=== PATIENT | male | born 1965 | race Caucasian/White ===

== ENCOUNTER → 2017-01-04 | Outpatient (CLI) | payer BC ==
[2017-01-04 08:36] LABS: Basophils % (A) 0 %; CH 31.3; CHCM 33.9; Eosinophils # (A) 0.2 k/uL (0-0.7); Eosinophils % (A) 2 %; HCT 46.7 % (39.0-53.0); HDW 2.46; HGB 15.7 gm/dL (13.0-17.5); Luc # (Auto) 0.28; Luc % (Auto) 3; Lymphocytes # (A) 2.7 k/uL (1.0-4.8); Lymphocytes % (A) 32 %; MCH 31.2 pg (25.0-35.0); MCHC 33.7 g/dL (31.0-37.0); MCV 92.7 fL (80.0-100.0); Mean Platelet Volume 6.3; Monocytes # (A) 0.6 k/uL (0-1.0); Monocytes % (A) 7 %; Neutrophils # (A) 4.7 k/uL (1.3-7.7); Neutrophils % (A) 56 %; RBC 5.04 m/uL (4.30-5.90); RDW 12.5 % (11.5-15.5); WBC 8.6 k/uL (3.8-10.6); WBC (Perox) 8.12
[2017-01-04 09:07] LABS: ALT 38 U/L (21-72); AST 39 U/L (17-59); Alkaline Phosphatase 78 U/L (38-126); Anion Gap 12 mmol/L; Blood Urea Nitrogen 14 mg/dL (9-20); Calcium 9.6 mg/dL (8.4-10.2); Carbon Dioxide 26 mmol/L (22-30); Chloride 105 mmol/L (98-107); Cholesterol 131 mg/dL (<200); Glucose 91 mg/dL (74-99); HDL Cholesterol 38 mg/dL (40-60); Non-African American GFR(MDRD) >60 (>60 ml/min/1.73 sqM); Potassium 4.5 mmol/L (3.5-5.1); Sodium 143 mmol/L (137-145); Total Bilirubin 1.8 mg/dL (0.2-1.3); Total Protein 7.5 g/dL (6.3-8.2); Triglycerides 136 mg/dL (<150)
[2017-01-04 14:34] LABS: Hemoglobin A1C 8.7 % (4.2-6.1)
[2017-01-04 15:07] LABS: Urine Creatinine 227.4 mg/dL
== END | disposition home or self-care (01) ==
LOC: LABWHC1 07:15
PROVIDERS: ATTEND Family Medicine
DX: E11.65 Type 2 diabetes mellitus with hyperglycemia (principal)
CPT/HCPCS: 36415; 80053; 80061; 82043; 82570; 83036; 84443; 85025

== ENCOUNTER 2018-06-02 08:07 | Day surgery (SDC) | payer BC ==
[2018-05-31 10:48] VITALS: BMI 38.2
[~2018-06-02 08:07] MED LIST: LACTATED RINGERS 1,000 ML IV SCH
[2018-06-02] MEDS ORDERED: LIDOCAINE 1% 20 ML VIAL (10MG/ML) FOR IV START INTRADERMA ONE (08:20)
[2018-06-02 08:38] LABS: Glucose,Whole Blood 94 mg/dL (75-99)
[2018-06-02] MEDS ORDERED: LIDOCAINE 1% INJ 10MG/ML (20 ML MDV) ONE (09:25)
[2018-06-02] MEDS ORDERED: fentaNYL (PF) 50 MCG/ML 2 ML AMP ONE (09:25)
[2018-06-02] MEDS ORDERED: PROPOFOL 10 MG/ML 20 ML VIAL IV ONE (09:25)
[2018-06-02 10:00] VITALS: RESP 18
--- NOTE | 2018-06-02 10:01 | P.PCN ---
Date of Procedure: 06/02/18 Procedure(s) Performed: Procedure: Total colonoscopy. Preoperative diagnosis: Screening for neoplasia. Postoperative diagnosis: Exam within normal limits. Preparation: HalfLytely prep. Sedation: Was provided by anesthesia. Brief clinical history: The patient is a 52-year-old male who is scheduled for this evaluation for screening for neoplasia. He has no abdominal complaints or significant changes in his stools or any bleeding or anemia. No family history of colon cancer. Procedure: With the patient on his left lateral decubitus position and after informed consent and adequate sedation I am a the perianal area was inspected and it did not show any fissures or fistulas. There were no masses felt on digital rectal examination. The Olympus CFH 190L video colonoscope was then inserted in the rectum in the usual fashion and advanced to the cecum. The mucosa appeared healthy. No polyps or tumors were seen or any obvious diverticular disease or other pathology. I retroflexed the endoscope in the rectum before the endoscope was withdrawn. The patient tolerated the procedure well. Plan: The patient was reassured. He will follow-up with you as planned and I recommended repeat exam in 10 years.
[2018-06-02 10:17] VITALS: BP 146/81; PULSE 54
== END 2018-06-02 10:34 | disposition home or self-care (01) ==
LOC: ORWHC2ENDO 08:07
DX: Z12.11 Encounter for screening for malignant neoplasm of colon (principal); E11.9 Type 2 diabetes mellitus without complications; J45.909 Unspecified asthma, uncomplicated; K21.9 Gastro-esophageal reflux disease without esophagitis; I10 Essential (primary) hypertension; E78.5 Hyperlipidemia, unspecified; Z79.82 Long term (current) use of aspirin; Z79.899 Other long term (current) drug therapy; Z79.84 Long term (current) use of oral hypoglycemic drugs
CPT/HCPCS: 45378; J2001; J3010; J2704

== ENCOUNTER 2020-11-22 03:18 | Emergency (ER) | payer BC ==
[2020-11-22 03:23] VITALS: RESP 18; TEMP 97.9
--- NOTE | 2020-11-22 03:42 | ED ---
Chest Pain HPI - General Chief Complaint: Chest Pain Stated Complaint: Chest Pain Time Seen by Provider: 11/22/20 03:24 Source: patient Mode of arrival: wheelchair Limitations: no limitations - History of Present Illness Initial Comments: This patient is a 55-year-old man who presents to be evaluated for intermittent sharp stabbing chest pains. He states that they came on less than hour before he arrived here, while he was watching television. The patient states that it just lasts for a second at a time. He had 3 episodes at home and then said he is to be seen here. He had another 4 episodes subsequent to leaving home. He indicates the area just to the right of the sternum near the base. No associated symptoms. No discomfort during the history of physical exam. Patient declines analgesic MD Complaint: chest pain -: minutes(s) Onset: during rest Pain Location: right chest Pain Radiation: none Severity: moderate Quality: sharp Consistency: intermittent Improves With: nothing Worsens With: nothing Treatments Prior to Arrival: none - Related Data Home Medications Medication Instructions Recorded Confirmed Aspirin [Adult Low Dose Aspirin EC] 81 mg PO DAILY 12/01/16 06/02/18 Atorvastatin [Lipitor] 10 mg PO DAILY@1400 12/01/16 06/02/18 Multivitamins, Thera [Multivitamin 1 tab PO DAILY 05/31/18 06/02/18 (formulary)] Nabumetone [Relafen] 500 mg PO DIRECTED PRN 05/31/18 06/02/18 lisinopriL [Zestril] 10 mg PO DAILY@1400 05/31/18 06/02/18 metFORMIN HCL [Glucophage] 1,000 mg PO 1400,0200 05/31/18 06/02/18 Allergies Allergy/AdvReac Type Severity Reaction Status Date / Time banana Allergy Unknown allergy Verified 11/22/20 03:23 test positive orange juice [[place]] Allergy Unknown allergy Verified 11/22/20 03:23 test positive Review of Systems ROS Statement: Those systems with pertinent positive or pertinent negative responses have been documented in the HPI. ROS Other: All systems not noted in ROS Statement are negative. Constitutional: Denies: fever, chills Respiratory: Denies: cough, dyspnea Cardiovascular: Reports: chest pain. Denies: palpitations, edema, syncope Gastrointestinal: Denies: abdominal pain, nausea, vomiting, diarrhea Genitourinary: Denies: dysuria, hematuria Musculoskeletal: Denies: back pain Skin: Denies: rash Neurological: Denies: headache, weakness, numbness EKG Findings - EKG Results: EKG: interpreted by ANAID, sinus rhythm (Rate 88 bpm), normal axis, normal QRS, normal ST/T, no acute changes Past Medical History Past Medical History: Asthma, Diabetes Mellitus, GERD/Reflux, Hyperlipidemia, Hypertension Additional Past Medical History / Comment(s): EXERCISE INDUCED ASTHMA (NO RX), GERD RESOLVED WITH LAP BAND., SLIGHT HIATAL HERNIA , HAS LAP BAND WITH FLUID., TYPE 2 DIABETES., BACK PAIN- SEES CHIROPRACTOR PRN., OCCASIONAL VERTIGO., CHANGE IN STOOLS. History of Any Multi-Drug Resistant Organisms: None Reported Past Surgical History: Bariatric Surgery, Cholecystectomy Additional Past Surgical History / Comment(s): LAP BAND (DR PENA 2007?) Past Anesthesia/Blood Transfusion Reactions: No Reported Reaction, Motion Sickness Additional Past Anesthesia/Blood Transfusion Reaction / Comment(s): OCCASIONAL VERTIGO Past Psychological History: No Psychological Hx Reported Smoking Status: Never smoker Past Alcohol Use History: None Reported Past Drug Use History: None Reported - Past Family History Father Family Medical History: Cancer Additional Family Medical History / Comment(s): BONE CA WITH METS General Exam General appearance: alert, in no apparent distress Head exam: Present: atraumatic, normocephalic Eye exam: Present: normal appearance. Absent: scleral icterus, conjunctival injection ENT exam: Present: normal oropharynx Neck exam: Present: normal inspection Respiratory exam: Present: normal lung sounds bilaterally. Absent: respiratory distress, wheezes, rales, rhonchi, stridor, chest wall tenderness Cardiovascular Exam: Present: regular rate, normal rhythm, normal heart sounds. Absent: systolic murmur, diastolic murmur, rubs, gallop GI/Abdominal exam: Present: soft. Absent: distended, tenderness, guarding, rebound, rigid, mass, pulsatile mass, hernia Extremities exam: Present: normal inspection, normal capillary refill. Absent: pedal edema, calf tenderness Neurological exam: Present: alert Skin exam: Present: warm, dry, intact, normal color. Absent: rash Course Vital Signs 11/22/20 11/22/20 11/22/20 03:19 03:40 04:36 Temperature 97.9 F Pulse Rate 91 94 94 Respiratory 18 18 18 Rate Blood Pressure 164/102 134/95 142/85 O2 Sat by Pulse 99 96 97 Oximetry Disposition Clinical Impression: Atypical chest pain Disposition: HOME SELF-CARE Condition: Good Instructions (If sedation given, give patient instructions): Chest Pain (ED) Is patient prescribed a controlled substance at d/c from ED?: No Referrals: Antony Sanchez MD [Primary Care Provider] - 1-2 days Jesus Flowers MD [STAFF PHYSICIAN] - 1-2 days
[2020-11-22 03:44] VITALS: PULSE 94
[2020-11-22 04:09] LABS: ALT 31 U/L (4-49); AST 39 U/L (17-59); African American GFR (CKD) >90 (>60 ml/min/1.73 sqM); Albumin 4.5 g/dL (3.5-5.0); Alkaline Phosphatase 90 U/L (38-126); Anion Gap 9 mmol/L; Blood Urea Nitrogen 18 mg/dL (9-20); Calcium 9.8 mg/dL (8.4-10.2); Carbon Dioxide 24 mmol/L (22-30); Chloride 105 mmol/L (98-107); Glucose 203 mg/dL (74-99); Non-African American GFR(CKD) >90 (>60 ml/min/1.73 sqM); Potassium 4.4 mmol/L (3.5-5.1); Sodium 138 mmol/L (137-145); Total Bilirubin 0.9 mg/dL (0.2-1.3); Total Protein 7.5 g/dL (6.3-8.2)
[2020-11-22 04:24] LABS: INR 0.9 (<1.2); Prothrombin Time 9.8 sec (9.0-12.0)
[2020-11-22 04:30] LABS: Partial Thromboplastin Time 21.7 sec (22.0-30.0)
--- NOTE | 2020-11-22 04:32 | XR ---
EXAM: XR Chest, 2 Views CLINICAL HISTORY: ITS.REASON XR Reason: Chest Pain TECHNIQUE: Frontal and lateral views of the chest. COMPARISON: No relevant prior studies available. FINDINGS: Lungs: Unremarkable. No consolidation. Pleural space: Unremarkable. No pneumothorax. Heart: Unremarkable. No cardiomegaly. Mediastinum: Unremarkable. Bones/joints: Mild osteophytosis throughout the thoracic spine. IMPRESSION: No acute findings in the chest.
[2020-11-22 04:38] VITALS: BP 142/85
[2020-11-22 05:00] LABS: HCT 46.4 % (39.0-53.0); HGB 15.1 gm/dL (13.0-17.5); MCH 29.7 pg (25.0-35.0); MCHC 32.5 g/dL (31.0-37.0); MCV 91.3 fL (80.0-100.0); Mean Platelet Volume 6.8; Platelet Count 246 k/uL (150-450); RBC 5.08 m/uL (4.30-5.90); RDW 13.9 % (11.5-15.5); WBC 5.3 k/uL (3.8-10.6)
[2020-11-22 05:49] LABS: Band Neutrophils % 1 %; Eosinophils # (M) 0.05 k/uL (0-0.7); Lymphocytes # (M) 2.54 k/uL (1.0-4.8); Monocytes # (M) 0.48 k/uL (0-1.0); Neutrophils % (M) 41 %; Nucleated Red Blood Cells 0 /100 WBC (0-0); Total Cells Counted 100
[2020-11-22 05:50] LABS: Anisocytosis (M) Present; Polychromasia Present
== END 2020-11-22 05:18 | disposition home or self-care (01) ==
LOC: EC 03:18
DX: R07.89 Other chest pain (principal); I10 Essential (primary) hypertension; E11.9 Type 2 diabetes mellitus without complications; J45.909 Unspecified asthma, uncomplicated; Z79.84 Long term (current) use of oral hypoglycemic drugs; Z91.018 Allergy to other foods; Z79.82 Long term (current) use of aspirin
CPT/HCPCS: 36415; 71046; 80053; 83735; 84484; 85025; 85610; 85730; 93005; 99285

== ENCOUNTER 2024-06-20 13:58 | Emergency (ER) | payer BC ==
[2024-06-20 14:14] VITALS: TEMP 98.3
--- NOTE | 2024-06-20 14:42 | ED ---
Lower Extremity Injury HPI - General Chief Complaint: Extremity Injury, Lower Stated Complaint: fall Time Seen by Provider: 06/20/24 14:15 Source: patient, RN notes reviewed Mode of arrival: ambulatory Limitations: no limitations - History of Present Illness Initial Comments: This is a 58-year-old male who presents to the emergency department for left an kle pain. States that he slipped and fell last night and felt a crack and a pop in his left ankle. He has since had pain and swelling, particularly on the outside of the ankle. States that the swelling seems to have gone down compared with yesterday. He is able to ambulate but states that it is difficult. Denies hitting his head or sustaining any other injuries. MD Complaint: ankle injury - Related Data Home Medications Medication Instructions Recorded Confirmed Aspirin [Adult Low Dose Aspirin EC] 81 mg PO DAILY 12/01/16 06/02/18 Atorvastatin [Lipitor] 10 mg PO DAILY@1400 12/01/16 06/02/18 Multivitamins, Thera [Multivitamin 1 tab PO DAILY 05/31/18 06/02/18 (formulary)] Nabumetone [Relafen] 500 mg PO DIRECTED PRN 05/31/18 06/02/18 lisinopriL [Zestril] 10 mg PO DAILY@1400 05/31/18 06/02/18 metFORMIN HCL [Glucophage] 1,000 mg PO 1400,0200 05/31/18 06/02/18 Previous Rx's Medication Instructions Recorded Ketorolac [Toradol] 10 mg PO TID #30 tab 08/23/22 Ondansetron Odt [Zofran Odt] 4 mg PO Q8HR PRN #20 tab 08/23/22 Tamsulosin HCl [Flomax] 0.4 mg PO DAILY #30 capsule 08/23/22 Allergies Allergy/AdvReac Type Severity Reaction Status Date / Time banana Allergy Unknown allergy Verified 06/20/24 14:14 test positive orange juice [[place]] Allergy Unknown allergy Verified 06/20/24 14:14 test positive Review of Systems ROS Statement: Those systems with pertinent positive or pertinent negative responses have been documented in the HPI. ROS Other: All systems not noted in ROS Statement are negative. Past Medical History Past Medical History: Asthma, Diabetes Mellitus, GERD/Reflux, Hyperlipidemia, Hypertension Additional Past Medical History / Comment(s): EXERCISE INDUCED ASTHMA (NO RX), GERD RESOLVED WITH LAP BAND., SLIGHT HIATAL HERNIA , HAS LAP BAND WITH FLUID., TYPE 2 DIABETES., BACK PAIN- SEES CHIROPRACTOR PRN., OCCASIONAL VERTIGO., CHANGE IN STOOLS. History of Any Multi-Drug Resistant Organisms: None Reported Past Surgical History: Bariatric Surgery, Cholecystectomy Additional Past Surgical History / Comment(s): LAP BAND (DR PENA 2007?) Past Anesthesia/Blood Transfusion Reactions: No Reported Reaction, Motion Sickness Additional Past Anesthesia/Blood Transfusion Reaction / Comment(s): OCCASIONAL VERTIGO Past Psychological History: No Psychological Hx Reported Smoking Status: Never smoker Past Alcohol Use History: None Reported Past Drug Use History: None Reported - Past Family History Father Family Medical History: Cancer Additional Family Medical History / Comment(s): BONE CA WITH METS General Exam Limitations: no limitations General appearance: alert, in no apparent distress Head exam: Present: atraumatic, normocephalic, normal inspection Respiratory exam: Present: normal lung sounds bilaterally. Absent: respiratory distress, wheezes, rales, rhonchi, stridor Cardiovascular Exam: Present: regular rate, normal rhythm, normal heart sounds. Absent: systolic murmur, diastolic murmur, rubs, gallop, clicks Extremities exam: Present: other (Tenderness, swelling, and ecchymosis over the lateral aspect of the left ankle. Full range of motion, however this does induce pain. 2+ DP and PT pulses) Neurological exam: Present: alert, oriented X3, CN II-XII intact Psychiatric exam: Present: normal affect, normal mood Course Vital Signs 06/20/24 14:10 Temperature 98.3 F Pulse Rate 113 H Respiratory 19 Rate Blood Pressure 148/81 O2 Sat by Pulse 98 Oximetry Medical Decision Making - Medical Decision Making This is a 58-year-old male who presents to the emergency department for a left ankle injury. Was pt. sent in by a medical professional or institution? @ -No Did you speak to anyone other than the patient for history? @ -No Did you review nursing and triage notes? @ -Yes, and I agree, it is accurate with regards to the patient's symptoms. Were old charts reviewed? @ -No Differential Diagnosis? @ -Differential Musculoskeletal Muscular strain, contusion, ligament sprain, fracture, arthritis, septic arthritis, bursitis, cellulitis, muscle spasm, nerve compression, DVT, arterial occlusion, herpes zoster, electrolyte abnormality, tumor.... This is not meant to be in all inclusive list EKG interpreted by me (3pts min.)? @ -Not obtained X-rays interpreted by me (1pt min.)? @ -X-ray of the left ankle obtained. My interpretation identifies no acute fractures. CT interpreted by me (1pt min.)? @ -Not obtained U/S interpreted by me (1pt. min.)? @ -Not obtained What testing was considered but not performed? (CT, X-rays, U/S, labs)? Why? @ -None What meds were considered but not given? Why? @ -None Did you discuss the management of the patient with other professionals? @ -No Did you reconcile home meds? @ -No Was smoking cessation discussed for >3mins.? @ -No Was critical care preformed (if so, how long)? @ -No Were there social determinants of health that impacted care today? How? (Homelessness, low income, unemployed, alcoholism, drug addiction, transportation, low edu. Level, literacy, decrease access to med. care, halfway, rehab)? @ -No Was there de-escalation of care discussed even if they declined? (Discuss DNR or withdrawal of care, Hospice)? @ -No What co-morbidities impacted this encounter? (DM, HTN, Smoking, COPD, CAD, Cancer, CVA, Hep., AIDS, mental health diagnosis, sleep apnea, morbid obesity)? @ -None Was patient admitted / discharged? @ -Discharged. X-ray of the left ankle obtained demonstrating soft tissue swelling suggesting ligamentous injury. There is a 6 mm ossific density below the medial malleolus which is age-indeterminate but favored to be chronic re lating to old injury. Patient has no point tenderness here and he does have a history of severe injuries to this ankle, likely accounting for this finding. Symptoms in this case are likely related to an ankle sprain. Pain managed in the emergency department. Advised ibuprofen and Tylenol as needed for pain relief as well as ice and elevation. Velcro stirrup splint applied prior to discharge. He does have crutches he can use at home if needed. Patient discharged home in stable condition. Case discussed with ED attending Dr. Wharton. Return precautions reviewed in depth, the patient is instructed to return to the emergency department with any new, worsening, or concerning symptoms. Patient verbalized understanding. Undiagnosed new problem with uncertain prognosis? @ -None Drug Therapy requiring intensive monitoring for toxicity (Heparin, Nitro, Insulin, Cardizem)? @ -None Were any procedures done? @ -None Diagnosis/symptom? @ -Left ankle sprain Acute, or Chronic, or Acute on Chronic? @ -Acute Uncomplicated (without systemic symptoms) or Complicated (systemic symptoms)? @ -Uncomplicated Side effects of treatment? @ -None Exacerbation, Progression, or Severe Exacerbation] @ -Not applicable Poses a threat to life or bodily function? @ -No - Radiology Data Radiology results: report reviewed, image reviewed Disposition Clinical Impression: Left ankle sprain Disposition: HOME SELF-CARE Instructions (If sedation given, give patient instructions): Ankle Sprain (ED) Additional Instructions: Return to the emergency department with any new, worsening, or concerning symptoms. Alternate with ibuprofen and Tylenol as needed for pain relief. Follow up with your primary care provider in 1-2 days. Is patient prescribed a controlled substance at d/c from ED?: No Referrals: Antony Sanchez MD [Primary Care Provider] - 1-2 days Time of Disposition: 15:35
--- NOTE | 2024-06-20 14:59 | XR ---
EXAMINATION TYPE: XR ankle complete 3 views LT DATE OF EXAM: 06/20/2024 2:36 PM COMPARISON: None CLINICAL INDICATION: Male, 58 years old with pain after history of fall, , FINDINGS: Frontal soft tissue swelling at the ankle especially anteriorly and laterally. Ankle mortise is congr uent with preservation of the distal tibiofibular overlap. There is ossific density below the medial malleolus measuring 6 mm. Otherwise, no acute fracture, subluxation, dislocation is seen. Os peroneum on the lateral view. IMPRESSION: Soft tissue swelling suggesting ligamentous injury. There is a 6 mm ossific density below the medial malleolus which is age indeterminate but favored chronic relating to an old injury. Correlate for any point tenderness here. [facility], , 06/20/2024 2:56 PM
[2024-06-20] MEDS: KETOROLAC 15 MG/ML 1 ML VIAL IM STA (15:11)
[2024-06-20] MEDS: HYDROcodone/APAP 7.5-325MG 1 EACH TAB PO ONE (15:11)
[2024-06-20] MEDS: IBUPROFEN 600 MG STARTER PACK 4 TAB BTL PO STA (15:51)
[2024-06-20] MEDS: ACET/COD 300 MG/30 MG STARTER PACK 6 TAB BTL PO STA (15:51)
[2024-06-20 15:59] VITALS: BP 117/64; PULSE 84; RESP 18
== END 2024-06-20 15:59 | disposition home or self-care (01) ==
LOC: EC 13:58
DX: S93.402A Sprain of unspecified ligament of left ankle, initial encounter (principal); Z91.018 Allergy to other foods; W01.0XXA Fall on same level from slipping, tripping and stumbling without subsequent striking against object, initial encounter
CPT/HCPCS: 73610; 99283; 96372; L4350; J1885